=== PATIENT | female | born 1990 | race Caucasian/White ===

== ENCOUNTER 2017-04-26 18:52 | Emergency (ER) | payer MEDICAID ==
[2017-04-26] MEDS ORDERED: CEPHALEXIN 250 MG CAPSULE PO STA (20:27)
[2017-04-26] MEDS ORDERED: CEPHALEXIN 250 MG CAPSULE PO ONE (20:32)
--- NOTE | 2017-04-26 20:45 | ED Physician Documentation ---
PD HPI SKIN - Stated complaint Stated Complaint: LT ARM SWELLING - Chief complaint Chief Complaint: Wound - History obtained from History obtained from: Patient, Family - History of Present Illness Timing - onset: Yesterday Timing - details: Gradual onset, Still present Location: LUE Quality / character: Painful, Discolored Associated symptoms: No: Fever, Myalgias, Joint pain Similar symptoms before: Has not had sx before Recently seen: Not recently seen - Additional information Additional information: Patient is a 26 year old female with a history of a puritic skin rash who is presenting to the emergency department for skin rash and swelling. Patient has had the puritic component for a while and she has been scratching it. Patient developed a slightly raised red area that is tender to touch starting yesterday. Review of Systems Constitutional: denies: Fever, Chills Eyes: denies: Photophobia Throat: denies: Sore throat Respiratory: denies: Cough, Wheezing GI: denies: Nausea, Vomiting Skin: reports: Rash. denies: Abrasion (s), Laceration (s) Musculoskeletal: reports: Extremity pain, Extremity swelling. denies: Joint pain Neurologic: denies: Generalized weakness, Focal weakness, Numbness Psychiatric: denies: Depressed, Suicidal Immunocompromised: denies: Immunocompromised PD PAST MEDICAL HISTORY - Past Medical History Past Medical History: Yes Neuro: Headache/migraine - Past Surgical History Past Surgical History: No - Present Medications Home Medications: Ambulatory Orders Medication Instructions Recorded Confirmed Amitriptyline HCl 1 tab PO QPM 04/26/17 04/26/17 Cephalexin [Keflex] 500 mg PO Q6H #28 capsule 04/26/17 - Allergies Allergies/Adverse Reactions: Allergies Allergy/AdvReac Type Severity Reaction Status Date / Time naproxen sodium * Allergy Edema Verified 04/26/17 19:43 [From Benjamin] - Social History Does the pt smoke?: Yes Smoking Status: Current every day smoker Does the pt drink ETOH?: Yes Does the pt have substance abuse?: No - Immunizations Immunizations are current?: No Immunizations: TDAP >10years/unknown - POLST Patient has POLST: No PD ED PE NORMAL - Vitals Vital signs reviewed: Yes - General General: Alert and oriented X 3, No acute distress - HEENT HEENT: Atraumatic, PERRL - Neck Neck: Supple, no meningeal sign - Cardiac Cardiac: RRR, No murmur - Abdomen Abdomen: Soft, Non tender, Non distended - Neuro Neuro: Alert and oriented X 3, No motor deficit, No sensory deficit, Normal speech - Psych Psych: Normal mood, Normal affect PD ED PE EXPANDED - Derm Derm: Urticaria (with excoriation) - Extremities Extremities: Left forearm (2cm by 3cm area of warmth, tenderness and erythema on left forearm.) Results - Vitals Vitals: Vital Signs - 24 hr 04/26/17 04/26/17 19:04 21:07 Temperature 37 C 36.8 C Heart Rate 106 H 86 Respiratory 17 18 Rate Blood Pressure 131/60 H 119/76 O2 Saturation 98 98 Oxygen O2 Source Room air PD MEDICAL DECISION MAKING - ED course Complexity details: reviewed old records, reviewed results, considered differential, d/w patient, d/w family ED course: Patient was seen and examined at bedside. patient had developed a cellulitis likely secondary to excoriations. Patient was started on keflex. Patient had a follow up with a long wall mining machine tender in 5 days. Patient was given detailed discharge and return instructions. Patient required no further work up and patient was stable for dishcharge with outpatient follow up. Departure - Departure Disposition: 01 Home, Self Care Clinical Impression: Cellulitis Condition: Good Instructions: Cellulitis Dc Follow-Up: primary,care provider [Other] - Within 1 week Prescriptions: Cephalexin [Keflex] 500 mg PO Q6H #28 capsule Comments: Your symptoms today are being caused by an infection on your skin. You will need to outline your infection and make sure that it improves. You had your first dose of antibiotics today and you will need to take it 4 times a day for the next week. You should follow up with your long wall mining machine tender on sunday. You can take motrin or tylenol as needed for fevers or pain. You may return to the emergency department at any time for new, worsening or uncontrollable symptoms. Discharge Date/Time: 04/26/17 20:55
[2017-04-26 21:09] VITALS: BP 119/76
== END 2017-04-26 20:55 | disposition home or self-care (01) ==
LOC: ED 18:52
DX: L03.114 Cellulitis of left upper limb (principal); L03.113 Cellulitis of right upper limb; F17.200 Nicotine dependence, unspecified, uncomplicated
CPT/HCPCS: 99283; A9270

== ENCOUNTER 2017-07-13 21:40 | Emergency (ER) | payer MEDICAID ==
--- NOTE | 2017-07-13 22:23 | XRAY Preliminary Report ---
Exam: XR Ankle 3 View LT IMPRESSION: No bony abnormality. [facility] SITE ID: [id number]
--- NOTE | 2017-07-13 22:26 | XRAY Report ---
EXAM: LEFT ANKLE RADIOGRAPHY EXAM DATE: 07/13/2017 10:09 PM. CLINICAL HISTORY: Fell onto a ditch and injured left ankle. Painful and swollen. COMPARISON: None. TECHNIQUE: 3 views. FINDINGS: Bones: Normal. No fractures or bone lesions. Joints: Normal. No effusion. No subluxations. The ankle mortise is normally aligned. Soft Tissues: Lateral soft tissue swelling. IMPRESSION: No bony abnormality. [facility] Referring Provider Line: [phone] SITE ID: [id number]
[2017-07-13] MEDS ORDERED: HYDROcod/ACET 5/325 Prepack 6 PO STA (22:38)
--- NOTE | 2017-07-13 22:40 | ED Physician Documentation ---
PD HPI LOWER EXT INJURY - Stated complaint Stated Complaint: ANKLE INJURY - Chief complaint Chief Complaint: Trauma Ext - History obtained from History obtained from: Patient - History of Present Illness PD HPI LOW EXT INJURY LOCATION: Other (Inversion injury of her left ankle because she stepped in a ditch at home while doing yard work today and she can walk but with a significant limp and a lot of pain.) Review of Systems Constitutional: denies: Fever, Chills Nose: denies: Rhinorrhea / runny nose, Congestion Cardiac: denies: Chest pain / pressure, Palpitations Respiratory: denies: Dyspnea, Cough PD PAST MEDICAL HISTORY - Past Medical History Past Medical History: Yes Neuro: Headache/migraine - Past Surgical History Past Surgical History: No - Present Medications Home Medications: Ambulatory Orders Medication Instructions Recorded Confirmed Amitriptyline HCl 1 tab PO QPM 04/26/17 07/13/17 HYDROcod/ACETAM 5/325 [Townsend 5/325] 1 - 2 ea PO Q6H PRN #15 tablet 07/13/17 - Allergies Allergies/Adverse Reactions: Allergies Allergy/AdvReac Type Severity Reaction Status Date / Time naproxen sodium * Allergy Edema Verified 07/13/17 21:47 [From Benjamin] - Social History Does the pt smoke?: Yes Smoking Status: Current every day smoker Does the pt drink ETOH?: Yes Does the pt have substance abuse?: No - Immunizations Immunizations are current?: Yes Immunizations: TDAP >10years/unknown - POLST Patient has POLST: No PD ED PE NORMAL - Vitals Vital signs reviewed: Yes - General General: Alert and oriented X 3, No acute distress - Extremities Extremities: Other (Left ankle is tender and swollen the lateral malleolus without focal foot or proximal fibular tenderness, Achilles function is intact.) - Neuro Neuro: Alert and oriented X 3, Normal speech - Psych Psych: Normal mood, Normal affect Results - Vitals Vitals: Vital Signs - 24 hr 07/13/17 21:47 Temperature 36.3 C L Heart Rate 116 H Respiratory 18 Rate Blood Pressure 139/97 H O2 Saturation 100 Oxygen O2 Source Room air - Rads (name of study) 3 view left ankle Radiology: EMP read contemporaneously (Normal) Departure - Departure Disposition: 01 Home, Self Care Clinical Impression: Ankle injury Qualifiers: Encounter type: initial encounter Laterality: left Qualified Code(s): S99.912A - Unspecified injury of left ankle, initial encounter Condition: Good Record reviewed to determine appropriate education?: Yes Instructions: ED Sprain Ankle W X Ray Prescriptions: HYDROcod/ACETAM 5/325 [Townsend 5/325] 1 - 2 ea PO Q6H PRN #15 tablet PRN Reason: Pain Comments: Recheck with your physician in 1 week if not improving, return if worse. Your blood pressure was elevated today on check into the emergency department. This does not mean that you have hypertension, it is a common phenomenon to come to the emergency department and have elevated blood pressure. I recommend that she see her primary care physician within the week to have it rechecked when you are feeling better. Do not drink or drive while taking narcotic pain medication. Note that many narcotic pain relievers also contain Tylenol/acetaminophen. Please ensure that your total dose of acetaminophen from all sources does not exceed 3 g (3000 mg) per day. You may get constipated while on this medication. Take a stool softener such as Colace twice a day while you are on it. Also add an tdcv-vqk-kvtkkok laxative such as senna or MiraLAX on any day that you do not have a bowel movement. If you received a narcotic pain medication or sedative while in the emergency department, do not drive for the next 24 hours.
[2017-07-13] MEDS ORDERED: HYDROcod/ACET 5/325 Prepack 6 PO ONE (22:53)
[2017-07-13 23:07] VITALS: BP 119/77
== END 2017-07-13 23:05 | disposition home or self-care (01) ==
LOC: ED 21:40
DX: S99.912A Unspecified injury of left ankle, initial encounter (principal); X50.0XXA Overexertion from strenuous movement or load, initial encounter; Y93.H9 Activity, other involving exterior property and land maintenance, building and construction; Y92.017 Garden or yard in single-family (private) house as the place of occurrence of the external cause; F17.200 Nicotine dependence, unspecified, uncomplicated; R03.0 Elevated blood-pressure reading, without diagnosis of hypertension
CPT/HCPCS: 99283

== ENCOUNTER 2017-10-25 15:05 | Outpatient (CLI) | payer MEDICAID ==
[2017-10-26 16:17] LABS: TEST RESULT REPORT
[2017-10-31 15:02] LABS: TEST RESULT REPORT (())
== END 2017-10-25 15:06 | disposition home or self-care (01) ==
LOC: LAB.N 15:05
PROVIDERS: ATTEND Nurse Practitioner Gerontology
DX: L23.9 Allergic contact dermatitis, unspecified cause (principal)
CPT/HCPCS: 36415; 81599; 86003

== ENCOUNTER 2018-07-15 08:00 | Outpatient (CLI) | payer MEDICAID ==
[2018-07-15 12:12] LABS: BASOPHILS % (AUTO) 0.5 %; EOSINOPHILS # (AUTO) 0.3 10^3/uL (0.0-0.7); EOSINOPHILS % (AUTO) 4.8 %; HGB - HEMOGLOBIN 13.1 g/dL (12.0-16.0); LYMPHOCYTES # (AUTO) 1.5 10^3/uL (1.5-3.5); LYMPHOCYTES % (AUTO) 24.8 %; MEAN CORPUSCULAR HGB CONC 35.3 g/dL (32.0-36.0); MEAN CORPUSCULAR VOLUME 90.7 fL (81.0-99.0); MEAN PLATELET VOLUME 8.9 fL (7.9-10.8); MONOCYTES # (AUTO) 0.6 10^3/uL (0.0-1.0); MONOCYTES % (AUTO) 9.5 %; NEUTROPHILS # (AUTO) 3.7 10^3/uL (1.5-6.6); NEUTROPHILS % (AUTO) 60.4 %; PLT - PLATELET COUNT 251 10^3/uL (130-450); RED CELL DISTRIBUTION WIDTH 12.4 % (12.0-15.0); WHITE BLOOD COUNT 6.1 x10^3/uL (4.8-10.8)
[2018-07-15 12:23] LABS: ALBUMIN 4.2 g/dL (3.2-5.5); ALBUMIN/GLOBULIN RATIO 1.4 (1.0-2.2); ALKALINE PHOSPHATASE 49 IU/L (42-121); ALT ALANINE AMINOTRANSFERASE 27 IU/L (10-60); AST ASPARTATE AMINOTRANSFERASE 20 IU/L (10-42); BUN - BLOOD UREA NITROGEN 10 mg/dL (6-20); CALCIUM 8.8 mg/dL (8.5-10.3); CARBON DIOXIDE - CO2 24 mmol/L (21-32); CHLORIDE 104 mmol/L (101-111); CHOL/HDL RATIO 4.5 (<4.4); CHOLESTEROL 174 mg/dL; CREATININE 0.5 mg/dL (0.4-1.0); GFR - MDRD 148 (>89); GLUCOSE 102 mg/dL (70-100); HDL CHOLESTEROL 39 mg/dL; LDL CHOLESTEROL,CALCULATED 92 mg/dL; LDL/HDL RATIO 2.4 (<4.4); SODIUM 136 mmol/L (135-145); TOTAL PROTEIN 7.1 g/dL (6.7-8.2); VLDL CHOLESTEROL 43 mg/dL
== END 2018-07-15 08:01 | disposition home or self-care (01) ==
LOC: LAB.N 08:00
PROVIDERS: ATTEND Nurse Practitioner Gerontology
DX: Z79.899 Other long term (current) drug therapy (principal)
CPT/HCPCS: 36415; 80053; 80061; 83721; 84443; 85025

== ENCOUNTER 2019-02-18 07:56 | Emergency (ER) | payer MEDICAID ==
[2019-02-18 08:17] VITALS: BP 131/74
--- NOTE | 2019-02-18 08:33 | ED Physician Documentation ---
PD HPI LOWER EXT INJURY - Stated complaint Stated Complaint: R FOOT PX - Chief complaint Chief Complaint: Ext Problem - History obtained from History obtained from: Patient, Family - History of Present Illness PD HPI LOW EXT INJURY LOCATION: Right, Foot Type of injury: Twist Where injury occurred: Street Timing - onset: Last night Timing - duration: Hours Timing - details: Abrupt onset, Still present Improved by: Rest, Immobilization Worsened by: Moving, Palpating Associated symptoms: Swelling. No: Weakness, Tingling Contributing factors: No: Anticoagulated Similar symptoms before: Has not had sx before Recently seen: Not recently seen - Additional information Additional information: Previously well 28-year-old female was running with her dog last night when she developed sudden onset of pain in the sole of the right foot. She is not able to bear weight on this. She has pain with flexion extension of the foot and any weight that she does bear it is only on the outside edge. She has maximal tenderness in the center of the foot on the sole and extending to the heel. Review of Systems Constitutional: denies: Fever Ears: denies: Ear pain Nose: denies: Congestion Throat: denies: Sore throat Respiratory: denies: Cough GI: denies: Vomiting Musculoskeletal: reports: Extremity pain, Pain with weight bearing. denies: Neck pain, Back pain Neurologic: denies: Generalized weakness, Focal weakness, Numbness PD PAST MEDICAL HISTORY - Past Medical History Past Medical History: No - Past Surgical History Past Surgical History: No - Present Medications Home Medications: Ambulatory Orders Medication Instructions Recorded Confirmed Amitriptyline HCl 1 tab PO QPM 04/26/17 02/18/19 - Allergies Allergies/Adverse Reactions: Allergies Allergy/AdvReac Type Severity Reaction Status Date / Time naproxen sodium * Allergy Edema Verified 02/18/19 08:17 [From Benjamin] - Social History Does the pt smoke?: Yes Smoking Status: Current every day smoker Does the pt drink ETOH?: Yes Does the pt have substance abuse?: No - Immunizations Immunizations are current?: Yes Immunizations: TDAP >10years/unknown - POLST Patient has POLST: No PD ED PE NORMAL - Vitals Vital signs reviewed: Yes (tachy and hypertensive mild ) - General General: Alert and oriented X 3, No acute distress, Well developed/nourished - HEENT HEENT: Atraumatic, PERRL, EOMI - Respiratory Respiratory: No respiratory distress - Derm Derm: Normal color, Warm and dry, No rash - Extremities Extremities: No deformity, No edema, Other (There is tenderness to the plantar surface of the right foot especially toward the heel. There is mild percieved fullness. There is no crepitance. distal n/v is intact. No tenderness to the proximal 5th. ) - Neuro Neuro: Alert and oriented X 3, return agent airport 2-12 intact, No motor deficit, No sensory deficit, Normal speech Eye Opening: Spontaneous Motor: Obeys Commands Verbal: Oriented GCS Score: 15 - Psych Psych: Normal mood, Normal affect Results - Vitals Vitals: Vital Signs - 24 hr 02/18/19 08:15 Temperature 36.0 C L Heart Rate 109 H Respiratory 14 Rate Blood Pressure 131/74 H O2 Saturation 99 Oxygen O2 Source Room air - Rads (name of study) right foot Radiology: Prelim report reviewed (Impression: Normal foot radiography.), EMP read indepedently, See rad report PD MEDICAL DECISION MAKING - ED course Complexity details: considered differential, d/w patient, d/w family ED course: 28-year-old female with acute foot pain after running has sprained her foot and there is no evidence of fracture or bone spurs. She is placed into a walking boot and will follow up with orthopedics. Departure - Departure Disposition: 01 Home, Self Care Clinical Impression: Foot sprain Qualifiers: Encounter type: initial encounter Laterality: right Qualified Code(s): S93.601A - Unspecified sprain of right foot, initial encounter Condition: Stable Instructions: ED Sprain Foot Follow-Up: Heidi Denise ARNP [Primary Care Provider] - Forms: Activity restrictions
--- NOTE | 2019-02-18 09:05 | XRAY Report ---
Reason: plantar pain mid foot/heel Procedure Date: 02/18/2019 Accession Number: [id number] / [id number] Procedure: XR - Foot 3 View RT CPT Code: FULL RESULT: EXAM: RIGHT FOOT RADIOGRAPHY EXAM DATE: 02/18/2019 08:56 AM. CLINICAL HISTORY: Plantar pain, mid foot/heel. COMPARISON: None. TECHNIQUE: 3 views. FINDINGS: Bones: Normal. No fractures or bone lesions. Joints: Normal. No subluxations. Soft Tissues: Normal. No soft tissue swelling. IMPRESSION: Normal foot radiography. [facility]
== END 2019-02-18 09:30 | disposition home or self-care (01) ==
LOC: ED 07:56
DX: F17.200 Nicotine dependence, unspecified, uncomplicated (principal); S93.601A Unspecified sprain of right foot, initial encounter; Y93.K1 Activity, walking an animal; Y93.02 Activity, running; Y92.410 Unspecified street and highway as the place of occurrence of the external cause
CPT/HCPCS: 99282; 99283

== ENCOUNTER 2019-09-23 15:00 | Outpatient (CLI) | payer MEDICAID ==
--- NOTE | 2019-09-24 09:36 | Ultrasound Report ---
Reason: TEST POSITIVE Procedure Date: 09/23/2019 Accession Number: [id number] / [id number] Procedure: US - OB First Trimester CPT Code: Final Report FULL RESULT: EXAM: FIRST TRIMESTER OBSTETRIC ULTRASOUND (Less than 11 weeks) EXAM DATE: 09/23/2019 05:50 PM. CLINICAL HISTORY: test positive. LMP: Unknown. COMPARISONS: None. TECHNIQUE: Transabdominal and transvaginal ultrasound examination with static image documentation. CLINICAL DATES: EGA 10 weeks 5 days with KURT 04/15/2020 based on LMP of 07/10/2019. EGA 6 weeks 2 days with KURT 05/16/2020 based on current ultrasound. ASSESSMENT: Gestational Sac: Single intrauterine. Embryo: CRL (crown-rump length) 5 mm = 6 weeks 2 days with an KURT of 05/16/2020. Cardiac activity: None detected. Yolk sac: 6 mm. Amniotic fluid: Not accurately assessed at this gestational age. Early placenta: Not visible at this gestational age. Other: Small perigestational collection measures 0.8 x 3.8 cm. MATERNAL STRUCTURES: Uterus: Anteverted. Unremarkable. Cervix: No mass. Trace fluid in the cervical canal was noted. Right Ovary/Adnexa: The ovary measures 2.2 x 4 x 2 cm, volume 8.9 cc. 1.6 x 1.9 x 1.4 Cm complex right ovarian cyst with debris and mild peripheral flow. No mural nodules or thickened septations. Left Ovary/Adnexa: The ovary measures 2.7 x 2.6 x 2.2 cm, volume 8 cc. Unremarkable. Free Fluid: None. Other: None. IMPRESSION: 1. Single intrauterine of uncertain viability at EGA 6 weeks 2 days with KURT 05/16/2020 based on crown-rump length, which is discordant with clinical dates. Absent cardiac activity may be due to early gestation. Recommend continued clinical and laboratory monitoring. Repeat imaging as necessary. 2. Assigned dating is KURT 05/16/2020 based on based on current ultrasound. 3. Small perigestational hemorrhage as above. 4. Probable 1.9 cm right ovarian complex cyst most likely due to a corpus luteum. Otherwise, normal bilateral ovaries and adnexa. [facility]
== END 2019-09-23 15:01 | disposition home or self-care (01) ==
LOC: DI 15:00
PROVIDERS: ATTEND Nurse Practitioner Obstetrics & Gynecology
DX: Z32.01 Encounter for pregnancy test, result positive (principal)
CPT/HCPCS: 76801; 76817

== ENCOUNTER 2019-09-24 16:06 | Outpatient (CLI) | payer MEDICAID | END 2019-09-24 16:07 | disposition home or self-care (01) | LOC: LAB 16:06 | PROVIDERS: ATTEND Nurse Practitioner Obstetrics & Gynecology | DX: O36.80X0 Pregnancy with inconclusive fetal viability, not applicable or unspecified (principal); Z3A.00 Weeks of gestation of pregnancy not specified | CPT/HCPCS: 36415; 84702 ==

== ENCOUNTER 2019-09-26 15:22 | Outpatient (CLI) | payer MEDICAID | END 2019-09-26 15:23 | disposition home or self-care (01) | LOC: LAB 15:22 | PROVIDERS: ATTEND Nurse Practitioner Obstetrics & Gynecology | DX: O36.80X0 Pregnancy with inconclusive fetal viability, not applicable or unspecified (principal); Z3A.00 Weeks of gestation of pregnancy not specified | CPT/HCPCS: 36415; 84702 ==

== ENCOUNTER 2019-10-03 15:18 | Outpatient (CLI) | payer MEDICAID | END 2019-10-03 15:19 | disposition home or self-care (01) | LOC: LAB 15:18 | PROVIDERS: ATTEND Nurse Practitioner Obstetrics & Gynecology | DX: O36.80X0 Pregnancy with inconclusive fetal viability, not applicable or unspecified (principal); Z3A.00 Weeks of gestation of pregnancy not specified | CPT/HCPCS: 36415; 84702 ==

== ENCOUNTER 2019-10-10 16:22 | Outpatient (CLI) | payer MEDICAID | END 2019-10-10 16:23 | disposition home or self-care (01) | LOC: LAB 16:22 | PROVIDERS: ATTEND Nurse Practitioner Obstetrics & Gynecology | DX: O36.80X0 Pregnancy with inconclusive fetal viability, not applicable or unspecified (principal); Z3A.00 Weeks of gestation of pregnancy not specified | CPT/HCPCS: 36415; 84702 ==

== ENCOUNTER 2019-10-13 11:47 | Emergency (ER) | payer MEDICAID ==
--- NOTE | 2019-10-13 12:12 | ED Physician Documentation ---
History of Present Illness - Stated complaint Stated Complaint: 10 WKS PREG/BLEEDING - Chief complaint Chief Complaint: Abd Pain - Additonal information Additional information: G1, P0 29-year-old female who is at 10 weeks by ultrasound who presents with cramping and bleeding. Patient states that all she had an ultrasound done 3 weeks ago which showed A fetus that was smaller by size them by dates, and had no cardiac activity. She spoke with her OB provider Shannon and at that time they decided to watch with expectant management, she developed some vaginal bleeding and cramping yesterday and today the pain became more severe. She called her OB and OB told her to take 600 mg ibuprofen and that the pain was not better and a half an hour to seek care in the emergency department. Patient took 600 mg ibuprofen and she is still having some discomfort so she presents here. She does not know her blood type. No vomiting. No dysuria. Review of Systems Constitutional: denies: Fever GI: reports: Abdominal Pain. denies: Vomiting : denies: Dysuria PD PAST MEDICAL HISTORY - Past Surgical History Past Surgical History: No - Present Medications Home Medications: Ambulatory Orders Medication Instructions Recorded Confirmed Hydrocodone/Acetaminophen 1 - 2 each PO Q6H PRN #5 tablet 10/13/19 [Hydrocodon-Acetaminophen 5-325] Multivitamin [Multivitamins] 1 cap PO DAILY 10/13/19 10/13/19 - Allergies Allergies/Adverse Reactions: Allergies Allergy/AdvReac Type Severity Reaction Status Date / Time naproxen sodium * Allergy Edema Verified 10/13/19 11:55 [From Benjamin] - Social History Does the pt smoke?: Yes Smoking Status: Current every day smoker Does the pt drink ETOH?: Yes Does the pt have substance abuse?: No - Immunizations Immunizations are current?: Yes Immunizations: TDAP >10years/unknown - POLST Patient has POLST: No PD ED PE NORMAL - Vitals Vital signs reviewed: Yes - General General: Alert and oriented X 3, No acute distress - HEENT HEENT: PERRL - Neck Neck: Supple, no meningeal sign - Cardiac Cardiac: RRR, No murmur - Respiratory Respiratory: Clear bilaterally - Abdomen Abdomen: Soft, Non tender, Non distended - Female Female : Chief Quality Officer present, Other (Small amount of blood in the vaginal vault, no brisk or active bleeding, no products in the cervical os, which appears open) - Derm Derm: Warm and dry - Extremities Extremities: No deformity - Neuro Neuro: Alert and oriented X 3 - Psych Psych: Normal mood, Normal affect Results - Vitals Vitals: Oxygen O2 Source Room air - Labs Labs: Laboratory Tests 10/13/19 10/13/19 10/13/19 12:53 13:06 13:06 WBC 10.6 RBC 4.00 L Hgb 12.4 Hct 37.3 MCV 93.3 MCH 31.0 MCHC 33.2 RDW 11.9 L Plt Count 277 MPV 10.2 Neut # (Auto) 7.6 H Lymph # (Auto) 2.0 [place] # (Auto) 0.7 Eos # (Auto) 0.1 Baso # (Auto) 0.0 Absolute Nucleated RBC 0.00 Nucleated RBC % 0.0 Sodium 138 Potassium 3.1 L Chloride 102 Carbon Dioxide 25 Anion Gap 11.0 BUN 6 Creatinine 0.6 Estimated GFR (MDRD) 119 Glucose 94 Calcium 9.1 Total Bilirubin 0.7 AST 17 ALT 21 Alkaline Phosphatase 42 Total Protein 7.7 Albumin 4.7 Globulin 3.0 Albumin/Globulin Ratio 1.6 Lipase 28 Serum HCG, Qual HCG, Quant Urine Color LT RED Urine Clarity HAZY Urine pH 6.5 Ur Specific [employer] <=1.005 Urine Protein NEGATIVE Urine Glucose (UA) NEGATIVE Urine Ketones NEGATIVE Urine Occult Blood LARGE H Urine Nitrite NEGATIVE Urine Bilirubin NEGATIVE Urine Urobilinogen 0.2 (NORMAL) Ur Leukocyte Esterase SMALL H Urine RBC 0-5 Urine WBC 0-3 Ur Squamous Epith Cells MOD Squamous H Urine Bacteria None Seen Urine Culture Comments NOT INDICATED Blood Type 10/13/19 10/13/19 10/13/19 13:06 13:06 13:06 WBC RBC Hgb Hct MCV MCH MCHC RDW Plt Count MPV Neut # (Auto) Lymph # (Auto) [place] # (Auto) Eos # (Auto) Baso # (Auto) Absolute Nucleated RBC Nucleated RBC % Sodium Potassium Chloride Carbon Dioxide Anion Gap BUN Creatinine Estimated GFR (MDRD) Glucose Calcium Total Bilirubin AST ALT Alkaline Phosphatase Total Protein Albumin Globulin Albumin/Globulin Ratio Lipase Serum HCG, Qual POSITIVE HCG, Quant 8448.00 Urine Color Urine Clarity Urine pH Ur Specific [employer] Urine Protein Urine Glucose (UA) Urine Ketones Urine Occult Blood Urine Nitrite Urine Bilirubin Urine Urobilinogen Ur Leukocyte Esterase Urine RBC Urine WBC Ur Squamous Epith Cells Urine Bacteria Urine Culture Comments Blood Type B NEGATIVE - Rads (name of study) US OB Radiology: Other (No growth, no cardiac activity, ultrasound consistent with demise.) PD MEDICAL DECISION MAKING - ED course Complexity details: considered differential (Miscarriage, retained products of conception, anemia) ED course: On exam patient is nontoxic-appearing, she is a benign abdominal exam. Labs are notable for a blood type B-, she was given a dose of RhoGam for this. On speculum exam cervical loss is open but there are no products of conception in the office, and only a small amount of blood in the vaginal vault, no brisk bleeding. Her OB ultrasound is consistent with a miscarriage with products of conception remaining in the uterus. hCG is downtrending as expected. Urine shows no signs of infection. I spoke with Dr. Schmid of obstetrics, who evaluated the patient And after discussion of options administered mifepristone. Patient was also given misoprostol per Dr. Schmid's recommendations. She was also prescribed a small amount of Vicodin for pain with instructions on safe use. Expectant care and return precautions were discussed with the patient. Patient is comfortable with this plan. She will follow-up with her OB office closely. She was discharged home in the care of family Departure - Departure Disposition: 01 Home, Self Care Clinical Impression: Miscarriage Condition: Good Instructions: Miscarriage Dc Follow-Up: Katy Schmid MD [Provider Admit Priv/Credential] - Prescriptions: Hydrocodone/Acetaminophen [Hydrocodon-Acetaminophen 5-325] 1 - 2 each PO Q6H PRN #5 tablet PRN Reason: pain Comments: You were given misoprostol today to help pass the products that are still in your uterus. This can cause cramping and bleeding. If you are having severe bleeding, or other worrisome symptoms such as lightheadedness, Return to the emergency department. Follow-up with your OB in the next several days. You may take ibuprofen 600 mg every 6 hours as needed for pain, and Tylenol 650 mg every 6 hours as needed for pain. Do not drink alcohol or drive while taking narcotic pain medication. Note that many narcotic pain relievers also contain Tylenol/acetaminophen. Please ensure that your total dose of acetaminophen from all sources does not exceed 3 g (3000 mg) per day. You may get constipated while on this medication. Take a stool softener such as Colace twice a day while you are on it. Also add an oafs-jec-pdbjnzv laxative such as senna or MiraLAX on any day that you do not have a bowel movement. If you received a narcotic pain medication or sedative while in the emergency department, do not drive for the next 24 hours. Discharge Date/Time: 10/13/19 17:56
[2019-10-13] MEDS ORDERED: ACETAMINOPHEN 325 MG TABLET PO STA (12:39)
[2019-10-13 13:03] LABS: BILIRUBIN,URINE NEGATIVE (NEGATIVE); GLUCOSE, URINE (UA) NEGATIVE (NEGATIVE); KETONES,URINE (UA) NEGATIVE (NEGATIVE); LEUKOCYTE ESTERASE, URINE SMALL (NEGATIVE); NITRITE,URINE NEGATIVE (NEGATIVE); OCCULT BLOOD,URINE LARGE (NEGATIVE); PH,URINE 6.5 PH (5.0-7.5); PROTEIN,URINE NEGATIVE (NEGATIVE); UROBILINOGEN,URINE 0.2 (NORMAL) E.U./dL (NORMAL)
[2019-10-13 13:04] LABS: CLARITY,URINE HAZY (CLEAR)
[2019-10-13 13:11] LABS: BACTERIA,URINE None Seen /HPF (None Seen); RBC,URINE 0-5 /HPF (0-5); SQUAMOUS EPITHELIAL CELL,UR MOD Squamous (<= Few)
[2019-10-13 13:37] LABS: BASOPHILS % (AUTO) 0.4 %; EOSINOPHILS # (AUTO) 0.1 10^3/uL (0.0-0.7); HGB - HEMOGLOBIN 12.4 g/dL (12.0-16.0); LYMPHOCYTES % (AUTO) 19.2 %; MEAN CORPUSCULAR HGB CONC 33.2 g/dL (32.0-36.0); MEAN CORPUSCULAR VOLUME 93.3 fL (81.0-99.0); MEAN PLATELET VOLUME 10.2 fL (7.9-10.8); MONOCYTES # (AUTO) 0.7 10^3/uL (0.0-1.0); MONOCYTES % (AUTO) 6.7 %; NEUTROPHILS # (AUTO) 7.6 10^3/uL (1.5-6.6); NEUTROPHILS % (AUTO) 72.2 %; PLT - PLATELET COUNT 277 10^3/uL (130-450); RED CELL DISTRIBUTION WIDTH 11.9 % (12.0-15.0); WHITE BLOOD COUNT 10.6 x10^3/uL (4.8-10.8)
[2019-10-13 13:52] LABS: ALBUMIN 4.7 g/dL (3.2-5.5); ALBUMIN/GLOBULIN RATIO 1.6 (1.0-2.2); BILIRUBIN,TOTAL 0.7 mg/dL (0.2-1.0); CALCIUM 9.1 mg/dL (8.5-10.3); CREATININE 0.6 mg/dL (0.4-1.0); TOTAL PROTEIN 7.7 g/dL (6.7-8.2)
[2019-10-13 14:20] LABS: HCG,QUALITATIVE BLOOD POSITIVE
--- NOTE | 2019-10-13 15:34 | Ultrasound Report ---
Reason: Vaginal bleeding, preg Procedure Date: 10/13/2019 Accession Number: [id number] / [id number] Procedure: US - OB First Trimester CPT Code: Final Report FULL RESULT: EXAM: FIRST TRIMESTER OBSTETRIC ULTRASOUND (Less than 11 weeks) EXAM DATE: 10/13/2019 03:02 PM. CLINICAL HISTORY: Vaginal bleeding, . LMP: 07/10/2019. COMPARISONS: OB FIRST TRIMESTER 09/23/2019 3:17 PM. TECHNIQUE: Transabdominal and transvaginal ultrasound examination with static image documentation. CLINICAL DATES: EGA 13 weeks 4 days with UKRT 04/15/2020 based on LMP. EGA 9 weeks 1 day with KURT 05/16/2020 based on first ultrasound Current crown-rump length measurement of 4.8 mm would indicate gestational age of 6 weeks 1 day. . Technologist indicated that patient was previously advised that the fetus had stopped growing at 6 weeks and that the patient would miscarry. ASSESSMENT: Gestational Sac: Single intrauterine. Embryo: CRL (crown-rump length) 4.8 mm = 6 weeks 1 day. Cardiac activity: No cardiac activity identified. Yolk sac: Yolk sac not seen. Amniotic fluid: Not accurately assessed. Early placenta: Not visible. Other: 25.1 x 11.4 x 21.2 mm.. MATERNAL STRUCTURES: Uterus: Anteverted. Unremarkable. Cervix: Closed. Right Ovary/Adnexa: The ovary measures 2.9 x 2.3 x 2.5 cm, volume 9.1 cc. Unremarkable. Left Ovary/Adnexa: The ovary measures 3.5 x 1.9 x 1.8 cm, volume 6.7 cc. Unremarkable. Free Fluid: None. Other: None. IMPRESSION: 1. Findings consistent with demise, with no heart rate detectable and interval decrease in size of pole, as anticipated. [facility]
[2019-10-13] MEDS ORDERED: RHO(D) IMMUNE GLOBULIN 300 MCG SYRINGE IM STA (15:43)
--- NOTE | 2019-10-13 16:51 | PROVIDER PROGRESS NOTE ---
Objective - Vital Signs/Intake & Output Vital Signs: Vital Signs x48h Temp Pulse Resp BP Pulse Ox 10/13/19 16:22 69 18 114/67 100 10/13/19 11:51 97.9 F 98 18 133/85 H 96 - Lab Results Fish Bones: 10/13/19 13:06 10/13/19 13:06 Other Labs: Lab Results x24hrs 10/13/19 10/13/19 10/13/19 Range/Units 13:06 13:06 13:06 WBC (4.8-10.8) x10^3/uL RBC (4.20-5.40) 10^6/uL Hgb (12.0-16.0) g/dL Hct (37.0-47.0) % MCV (81.0-99.0) fL MCH (27.0-31.0) pg MCHC (32.0-36.0) g/dL RDW (12.0-15.0) % Plt Count (130-450) 10^3/uL MPV (7.9-10.8) fL Neut # (Auto) (1.5-6.6) 10^3/uL Lymph # (Auto) (1.5-3.5) 10^3/uL [place] # (Auto) (0.0-1.0) 10^3/uL Eos # (Auto) (0.0-0.7) 10^3/uL Baso # (Auto) (0.0-0.1) 10^3/uL Absolute Nucleated RBC x10^3/uL Nucleated RBC % /100WBC Sodium (135-145) mmol/L Potassium (3.5-5.0) mmol/L Chloride (101-111) mmol/L Carbon Dioxide (21-32) mmol/L Anion Gap (6-13) BUN (6-20) mg/dL Creatinine (0.4-1.0) mg/dL Estimated GFR (MDRD) (>89) Glucose (70-100) mg/dL Calcium (8.5-10.3) mg/dL Total Bilirubin (0.2-1.0) mg/dL AST (10-42) IU/L ALT (10-60) IU/L Alkaline Phosphatase (42-121) IU/L Total Protein (6.7-8.2) g/dL Albumin (3.2-5.5) g/dL Globulin (2.1-4.2) g/dL Albumin/Globulin Ratio (1.0-2.2) Lipase (22-51) U/L Serum HCG, Qual POSITIVE HCG, Quant 8448.00 mIU/mL Urine Color Urine Clarity (CLEAR) Urine pH (5.0-7.5) PH Ur Specific [place] (1.002-1.030) Urine Protein (NEGATIVE) mg/dL Urine Glucose (UA) (NEGATIVE) mg/dL Urine Ketones (NEGATIVE) mg/dL Urine Occult Blood (NEGATIVE) Urine Nitrite (NEGATIVE) Urine Bilirubin (NEGATIVE) Urine Urobilinogen (NORMAL) E.U./dL Ur Leukocyte Esterase (NEGATIVE) Urine RBC (0-5) /HPF Urine WBC (0-5) /HPF Ur Squamous Epith Cells (<= Few) Urine Bacteria (None Seen) /HPF Urine Culture Comments Blood Type B NEGATIVE 10/13/19 10/13/19 10/13/19 Range/Units 13:06 13:06 12:53 WBC 10.6 (4.8-10.8) x10^3/uL RBC 4.00 L (4.20-5.40) 10^6/uL Hgb 12.4 (12.0-16.0) g/dL Hct 37.3 (37.0-47.0) % MCV 93.3 (81.0-99.0) fL MCH 31.0 (27.0-31.0) pg MCHC 33.2 (32.0-36.0) g/dL RDW 11.9 L (12.0-15.0) % Plt Count 277 (130-450) 10^3/uL MPV 10.2 (7.9-10.8) fL Neut # (Auto) 7.6 H (1.5-6.6) 10^3/uL Lymph # (Auto) 2.0 (1.5-3.5) 10^3/uL [place] # (Auto) 0.7 (0.0-1.0) 10^3/uL Eos # (Auto) 0.1 (0.0-0.7) 10^3/uL Baso # (Auto) 0.0 (0.0-0.1) 10^3/uL Absolute Nucleated RBC 0.00 x10^3/uL Nucleated RBC % 0.0 /100WBC Sodium 138 (135-145) mmol/L Potassium 3.1 L (3.5-5.0) mmol/L Chloride 102 (101-111) mmol/L Carbon Dioxide 25 (21-32) mmol/L Anion Gap 11.0 (6-13) BUN 6 (6-20) mg/dL Creatinine 0.6 (0.4-1.0) mg/dL Estimated GFR (MDRD) 119 (>89) Glucose 94 (70-100) mg/dL Calcium 9.1 (8.5-10.3) mg/dL Total Bilirubin 0.7 (0.2-1.0) mg/dL AST 17 (10-42) IU/L ALT 21 (10-60) IU/L Alkaline Phosphatase 42 (42-121) IU/L Total Protein 7.7 (6.7-8.2) g/dL Albumin 4.7 (3.2-5.5) g/dL Globulin 3.0 (2.1-4.2) g/dL Albumin/Globulin Ratio 1.6 (1.0-2.2) Lipase 28 (22-51) U/L Serum HCG, Qual HCG, Quant mIU/mL Urine Color LT RED Urine Clarity HAZY (CLEAR) Urine pH 6.5 (5.0-7.5) PH Ur Specific [place] <=1.005 (1.002-1.030) Urine Protein NEGATIVE (NEGATIVE) mg/dL Urine Glucose (UA) NEGATIVE (NEGATIVE) mg/dL Urine Ketones NEGATIVE (NEGATIVE) mg/dL Urine Occult Blood LARGE H (NEGATIVE) Urine Nitrite NEGATIVE (NEGATIVE) Urine Bilirubin NEGATIVE (NEGATIVE) Urine Urobilinogen 0.2 (NORMAL) (NORMAL) E.U./dL Ur Leukocyte Esterase SMALL H (NEGATIVE) Urine RBC 0-5 (0-5) /HPF Urine WBC 0-3 (0-5) /HPF Ur Squamous Epith Cells MOD Squamous H (<= Few) Urine Bacteria None Seen (None Seen) /HPF Urine Culture Comments NOT INDICATED Blood Type Assessment/Plan - Problem List (1) Missed Impression: Rh neg, got rhogam in ER. US confirms MAB . Pt has chosen [facility] and would let us know when she wanted medical mgmt. With SAB cramping starting today, she would like to complete the SAB. Offered medical management which she accepts. Mifipristone 200mg given to patient while I observed her taking it. Will also give 800mcg of misoprostol. Bleeding precuaitons given. Sharmaine
[2019-10-13] MEDS ORDERED: miSOPROStoL 200 MCG TABLET PO STA ×2 (16:52→17:15)
[2019-10-13] MEDS ORDERED: miSOPROStoL 100 MCG TABLET VG ONE ×2 (16:52→17:10)
[2019-10-13 17:37] VITALS: BP 126/55
== END 2019-10-13 17:56 | disposition home or self-care (01) ==
LOC: ED 11:47
DX: O02.1 Missed abortion (principal); Z3A.10 10 weeks gestation of pregnancy; O99.331 Smoking (tobacco) complicating pregnancy, first trimester
CPT/HCPCS: 36415; 76801; 76817; 80053; 81001; 83690; 84702; 84703; 85025; 86900; 86901; 96372; 99284; A9270; 87086

== ENCOUNTER 2019-10-24 16:03 | Outpatient (CLI) | payer MEDICAID | END 2019-10-24 16:04 | disposition home or self-care (01) | LOC: LAB 16:03 | PROVIDERS: ATTEND Nurse Practitioner Obstetrics & Gynecology | DX: O02.1 Missed abortion (principal) | CPT/HCPCS: 36415; 84702 ==

== ENCOUNTER 2019-11-03 16:02 | Outpatient (CLI) | payer MEDICAID | END 2019-11-03 16:03 | disposition home or self-care (01) | LOC: LAB 16:02 | PROVIDERS: ATTEND Nurse Practitioner Obstetrics & Gynecology | DX: O02.1 Missed abortion (principal); Z3A.00 Weeks of gestation of pregnancy not specified | CPT/HCPCS: 36415; 84702 ==

== ENCOUNTER 2020-04-23 11:32 | Outpatient (CLI) | payer MEDICAID ==
--- NOTE | 2020-04-23 23:07 | Ultrasound Report ---
Reason: DYSMENORRHEA Procedure Date: 04/23/2020 Accession Number: [id number] / [id number] Procedure: US - Pelvic w/Transvaginal CPT Code: Final Report FULL RESULT: PROCEDURE: Pelvic w/Transvaginal INDICATIONS: DYSMENORRHEA TECHNIQUE: Real-time scanning was performed of the pelvic organs, with image documentation. Additional endovaginal scanning was necessary due to incomplete visualization of the adnexal and endometrial structures by transabdominal scanning. COMPARISON: None. FINDINGS: Transabdominal scanning: Limited scanning through the kidneys shows no hydronephrosis. Trace fluid in the pelvic cul-de-sac. Endovaginal scanning: Uterus: Uterus is anteverted and normal in size at 7.6 x 5 x 3.7 cm. The endometrium measures 8 mm in combined thickness. Small hypoechoic foci measuring approximately 6 mm in the anterior and posterior endometrium. Adjacent prominent vessel at the posterior aspect. Small nabothian cysts. Ovaries: Within normal limits. Small left ovarian hemorrhagic cyst measuring 1.3 x 1.2 x 1.1 cm. Right ovary measures 3 x 2.7 x 2 cm. Left ovary measures 4 x 2 x 1.8 cm. IMPRESSION: 1. Small hypoechoic foci within the endometrium with adjacent blood vessel. This could represent a small endometrial polyp. 2. Endometrial thickness is 8 mm and within normal limits. 3. Small left ovarian hemorrhagic cyst measuring 1.3 cm. Trace fluid in the pelvic cul-de-sac. Reviewed by: Deondre Cano MD on 04/23/2020 11:05 PM PDT Approved by: Deondre Cano MD on 04/23/2020 11:05 PM PDT Station ID: [id number]
== END 2020-04-23 11:33 | disposition home or self-care (01) ==
LOC: DI 11:32
PROVIDERS: ATTEND Family Medicine
DX: R93.89 Abnormal findings on diagnostic imaging of other specified body structures (principal); N83.202 Unspecified ovarian cyst, left side
CPT/HCPCS: 76830; 76856

== ENCOUNTER 2020-10-03 22:18 | Emergency (ER) | payer MEDICAID ==
--- NOTE | 2020-10-03 22:45 | ED Physician Documentation ---
PD HPI FEMALE - Stated complaint Stated Complaint: FEMALE - Chief complaint Chief Complaint: Abd Pain - History obtained from History obtained from: Patient - History of Present Illness Timing - onset: How many months ago (1) Timing - details: Intermittant Pain level max: 1 Associated symptoms: Abdominal pain. No: Fever Contributing factors: No: Recently seen: Not recently seen - Additional information Additional information: c/o one month of intermittent focal swelling LLQ and suprapubic region. she says she can see the swelling but only episodically, more pronounced when she stands up. she says she cant feel any lump or mass when palpating the area. she has had some mild tenderness of the area past 1-2 days. she called PMD but says she was unable to schedule an appointment Review of Systems Constitutional: reports: Reviewed and negative Cardiac: reports: Reviewed and negative Respiratory: reports: Reviewed and negative GI: reports: Abdominal Pain, Abdominal Swelling (focal). denies: Nausea, Vomiting, Constipation, Diarrhea : denies: Dysuria, Frequency, Now EGA Skin: denies: Rash PD PAST MEDICAL HISTORY - Past Medical History Cardiovascular: None Respiratory: None Neuro: Migraines Endocrine/Autoimmune: None GI: None : None Psych: None Musculoskeletal: None Derm: None - Past Surgical History Past Surgical History: No - Allergies Allergies/Adverse Reactions: Allergies Allergy/AdvReac Type Severity Reaction Status Date / Time naproxen sodium * Allergy Edema Verified 05/04/20 11:58 [From Benjamin] - Social History Does the pt smoke?: Yes Smoking Status: Current every day smoker Does the pt drink ETOH?: Yes ETOH Use: Beer Does the pt have substance abuse?: No - Immunizations Immunizations are current?: Yes Immunizations: TDAP >10years/unknown - POLST Patient has POLST: No PD ED PE NORMAL - Vitals Vital signs reviewed: Yes - General General: Alert and oriented X 3, Well developed/nourished - Cardiac Cardiac: RRR, No murmur - Respiratory Respiratory: No respiratory distress, Clear bilaterally - Abdomen Abdomen: Normal bowel sounds, Soft, Non distended, Other (mild, focal LLQ TTP without guarding or rebound. no visible swelling, no palpable mass or hernia) Results - Vitals Vitals: Vital Signs - 24 hr 10/03/20 10/04/20 10/04/20 22:24 00:27 02:00 Temperature 36.5 C 36.7 C 36.7 C Heart Rate 100 89 83 Respiratory 16 16 15 Rate Blood Pressure 122/75 115/75 99/54 L O2 Saturation 98 98 96 10/04/20 02:52 Temperature 36.8 C Heart Rate 91 Respiratory 16 Rate Blood Pressure 103/51 L O2 Saturation 98 Oxygen O2 Source Room air - Labs Labs: Laboratory Tests 10/04/20 10/04/20 10/04/20 00:16 00:16 00:16 WBC 7.9 RBC 4.15 L Hgb 13.5 Hct 39.5 MCV 95.2 MCH 32.5 H MCHC 34.2 RDW 11.9 L Plt Count 272 MPV 10.1 Neut # (Auto) 3.2 Lymph # (Auto) 3.5 [place] # (Auto) 0.7 Eos # (Auto) 0.4 Baso # (Auto) 0.1 Absolute Nucleated RBC 0.00 Nucleated RBC % 0.0 Sodium 141 Potassium 3.7 Chloride 106 Carbon Dioxide 26 Anion Gap 9.0 BUN 10 Creatinine 0.5 Estimated GFR (MDRD) 146 Glucose 100 Calcium 9.0 Urine Color YELLOW Urine Clarity CLEAR Urine pH 7.0 Ur Specific [place] 1.020 Urine Protein NEGATIVE Urine Glucose (UA) NEGATIVE Urine Ketones NEGATIVE Urine Occult Blood TRACE-INTA Urine Nitrite NEGATIVE Urine Bilirubin NEGATIVE Urine Urobilinogen 0.2 (NORMAL) Ur Leukocyte Esterase NEGATIVE Ur Microscopic Review NOT INDICATED Urine Culture Comments NOT INDICATED - Rads (name of study) CT A/P Radiology: Prelim report reviewed, See rad report PD MEDICAL DECISION MAKING - ED course Complexity details: reviewed results, re-evaluated patient, considered differential, d/w patient Departure - Departure Disposition: 01 Home, Self Care Clinical Impression: Abdominal pain Condition: Good Instructions: ED Abdominal Pain Unkn Cause Discharge Date/Time: 10/04/20 02:54
[2020-10-04 00:21] LABS: BILIRUBIN,URINE NEGATIVE (NEGATIVE); GLUCOSE, URINE (UA) NEGATIVE (NEGATIVE); KETONES,URINE (UA) NEGATIVE (NEGATIVE); LEUKOCYTE ESTERASE, URINE NEGATIVE (NEGATIVE); NITRITE,URINE NEGATIVE (NEGATIVE); OCCULT BLOOD,URINE TRACE-INTA (NEGATIVE); PROTEIN,URINE NEGATIVE (NEGATIVE); UROBILINOGEN,URINE 0.2 (NORMAL) E.U./dL (NORMAL)
[2020-10-04 00:24] LABS: CLARITY,URINE CLEAR (CLEAR)
[2020-10-04 00:28] LABS: BASOPHILS # (AUTO) 0.1 10^3/uL (0.0-0.1); BASOPHILS % (AUTO) 0.8 %; EOSINOPHILS # (AUTO) 0.4 10^3/uL (0.0-0.7); EOSINOPHILS % (AUTO) 4.6 %; HGB - HEMOGLOBIN 13.5 g/dL (12.0-16.0); LYMPHOCYTES # (AUTO) 3.5 10^3/uL (1.5-3.5); LYMPHOCYTES % (AUTO) 44.7 %; MEAN CORPUSCULAR HEMOGLOBIN 32.5 pg (27.0-31.0); MEAN CORPUSCULAR HGB CONC 34.2 g/dL (32.0-36.0); MEAN CORPUSCULAR VOLUME 95.2 fL (81.0-99.0); MEAN PLATELET VOLUME 10.1 fL (7.9-10.8); MONOCYTES # (AUTO) 0.7 10^3/uL (0.0-1.0); MONOCYTES % (AUTO) 8.5 %; NEUTROPHILS # (AUTO) 3.2 10^3/uL (1.5-6.6); NEUTROPHILS % (AUTO) 41.1 %; PLT - PLATELET COUNT 272 10^3/uL (130-450); RED BLOOD COUNT 4.15 10^6/uL (4.20-5.40); RED CELL DISTRIBUTION WIDTH 11.9 % (12.0-15.0); WHITE BLOOD COUNT 7.9 x10^3/uL (4.8-10.8)
[2020-10-04 00:37] LABS: CREATININE 0.5 mg/dL (0.4-1.0)
[2020-10-04] MEDS ORDERED: IOVERSOL 320 100 ML VIAL IVP ONE ×2 (00:45→01:11)
[2020-10-04 02:54] VITALS: BP 103/51
--- NOTE | 2020-10-04 08:40 | CT Report ---
PROCEDURE: Abdomen/Pelvis W INDICATIONS: LLQ pain CONTRAST: IV CONTRAST: Optiray 320 ml: 100 PO CONTRAST: *NO PO CONTRAST TECHNIQUE: After the administration of IV contrast, 5 mm thick sections acquired from the diaphragms to the symp hysis. 5 mm thick coronal and sagittal reformats were acquired. For radiation dose reduction, the f ollowing was used: automated exposure control, adjustment of mA and/or kV according to patient size. COMPARISON: Ultrasound pelvis 04/23/2020 FINDINGS: Image quality: Excellent. ABDOMEN: Lung bases: Lung bases are clear. Heart size is normal. Solid organs: Liver is enlarged with steatosis. The spleen is normal in size and enhancement. Gallb ladder is unremarkable Biliary system is non dilated. Pancreas enhances normally. No adrenal nodul es. Kidneys demonstrate normal size and enhancement, without hydronephrosis. Peritoneum and bowel: Bowel loops demonstrate normal wall thickness and caliber. No free fluid or a ir. Moderate stool is present without obstruction. Nodes and vessels: No retroperitoneal or mesenteric adenopathy by size criteria. Aorta and inferior vena cava are normal in size. Miscellaneous: No ventral hernias. No mass lesion, fluid collection or other abnormality is noted a t the area of palpable concern within the anterior left lower quadrant. PELVIS: Genitourinary: Bladder wall thickness is normal. Miscellaneous: No inguinal hernias or adenopathy. Bones: No suspicious bony lesions. No vertebral body compression fractures. IMPRESSION: 1. Moderate stool without obstruction. 2. There is no visualized acute changes within the abdomen or pelvis. The above findings are concordant with preliminary report. Reviewed by: Christel Grande MD on 10/04/2020 8:39 AM PST Approved by: Christel Grande MD on 10/04/2020 8:39 AM PST Station ID: [id number]
== END 2020-10-04 02:54 | disposition home or self-care (01) ==
LOC: ED 22:18
DX: R10.32 Left lower quadrant pain (principal); F17.200 Nicotine dependence, unspecified, uncomplicated
CPT/HCPCS: 36415; 74177; 80048; 81003; 85025; 99283; 99284; Q9967; 81001; 87086

== ENCOUNTER 2020-12-08 08:00 | Outpatient (CLI) | payer MEDICAID ==
[2020-12-08 19:36] LABS: ALBUMIN 4.6 g/dL (3.2-5.5); ALBUMIN/GLOBULIN RATIO 1.6 (1.0-2.2); BILIRUBIN,TOTAL 0.8 mg/dL (0.2-1.0); CALCIUM 9.3 mg/dL (8.5-10.3); CREATININE 0.6 mg/dL (0.4-1.0); TOTAL PROTEIN 7.4 g/dL (6.7-8.2)
== END 2020-12-08 23:59 | disposition home or self-care (01) ==
LOC: LAB.WCP 08:00
PROVIDERS: ATTEND Physician Assistant
DX: Z51.81 Encounter for therapeutic drug level monitoring (principal); Z79.899 Other long term (current) drug therapy
CPT/HCPCS: 36415; 80053

== ENCOUNTER 2021-05-25 08:50 | Emergency (ER) | payer MEDICAID ==
[2021-05-25 09:15] LABS: BILIRUBIN,URINE NEGATIVE (NEGATIVE); GLUCOSE, URINE (UA) NEGATIVE (NEGATIVE); KETONES,URINE (UA) NEGATIVE (NEGATIVE); LEUKOCYTE ESTERASE, URINE NEGATIVE (NEGATIVE); NITRITE,URINE NEGATIVE (NEGATIVE); OCCULT BLOOD,URINE MODERATE (NEGATIVE); PROTEIN,URINE NEGATIVE (NEGATIVE); UROBILINOGEN,URINE 0.2 (NORMAL) E.U./dL (NORMAL)
[2021-05-25 09:16] LABS: CLARITY,URINE CLEAR (CLEAR); HCG UR QUAL NEGATIVE
[2021-05-25 09:26] LABS: BACTERIA,URINE Rare /HPF (None Seen); RBC,URINE 0-5 /HPF (0-5); SQUAMOUS EPITHELIAL CELL,UR FEW Squamous (<= Few); WBC,URINE 0-3 /HPF (0-5)
[2021-05-25 09:27] LABS: MUCUS,URINE Marked Strands
[2021-05-25 09:31] LABS: BASOPHILS # (AUTO) 0.1 10^3/uL (0.0-0.1); BASOPHILS % (AUTO) 0.5 %; EOSINOPHILS # (AUTO) 0.2 10^3/uL (0.0-0.7); EOSINOPHILS % (AUTO) 1.4 %; HCT - HEMATOCRIT 39.2 % (37.0-47.0); HGB - HEMOGLOBIN 13.4 g/dL (12.0-16.0); LYMPHOCYTES # (AUTO) 1.2 10^3/uL (1.5-3.5); LYMPHOCYTES % (AUTO) 11.3 %; MEAN CORPUSCULAR HEMOGLOBIN 32.2 pg (27.0-31.0); MEAN CORPUSCULAR HGB CONC 34.2 g/dL (32.0-36.0); MEAN CORPUSCULAR VOLUME 94.2 fL (81.0-99.0); MEAN PLATELET VOLUME 9.8 fL (7.9-10.8); MONOCYTES # (AUTO) 0.7 10^3/uL (0.0-1.0); MONOCYTES % (AUTO) 6.3 %; NEUTROPHILS # (AUTO) 8.8 10^3/uL (1.5-6.6); NEUTROPHILS % (AUTO) 80.2 %; PLT - PLATELET COUNT 288 10^3/uL (130-450); RED BLOOD COUNT 4.16 10^6/uL (4.20-5.40); RED CELL DISTRIBUTION WIDTH 11.9 % (12.0-15.0)
[2021-05-25 09:45] LABS: ALBUMIN 4.4 g/dL (3.2-5.5); ALBUMIN/GLOBULIN RATIO 1.4 (1.0-2.2); BILIRUBIN,TOTAL 0.6 mg/dL (0.2-1.0); CALCIUM 8.9 mg/dL (8.5-10.3); CREATININE 0.7 mg/dL (0.4-1.0); POTASSIUM 3.8 mmol/L (3.5-5.0); TOTAL PROTEIN 7.6 g/dL (6.7-8.2)
--- NOTE | 2021-05-25 10:06 | ED Physician Documentation ---
PD HPI FEMALE - Stated complaint Stated Complaint: FEMALE - Chief complaint Chief Complaint: Abd Pain - History obtained from History obtained from: Patient - History of Present Illness Timing - onset: Today Timing - duration: Hours Timing - details: Abrupt onset, Still present Associated symptoms: Abdominal pain. 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 She has had worse cramping than she has experienced previously. She is currently not having symptoms. She had some nausea and vomiting associated with the severity of the pain. She felt that she needed to go to the bathroom and was able to have a BM without problem. She notes that over the past 4 months she has had an irregularity to her menses she is having more bleeding than normal and more cramping than normal. Review of Systems Constitutional: denies: Fever Eyes: denies: Decreased vision Ears: denies: Ear pain Nose: denies: Congestion Throat: denies: Sore throat Cardiac: denies: Chest pain / pressure Respiratory: denies: Dyspnea, Cough GI: reports: Abdominal Pain, Nausea, Vomiting. 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), Other : None HEENT: None Psych: None Musculoskeletal: None Derm: None - Past Surgical History Past Surgical History: No - Present Medications Home Medications: Ambulatory Orders Medication Instructions Recorded Confirmed Topiramate [Topamax] 50 mg PO BID 05/25/21 05/25/21 - Allergies Allergies/Adverse Reactions: Allergies Allergy/AdvReac Type Severity Reaction Status Date / Time naproxen sodium * Allergy Edema Verified 05/25/21 08:57 [From Benjamin] - Social History Does the pt smoke?: Yes Smoking Status: Current every day smoker Does the pt drink ETOH?: Yes ETOH Use: Beer Does the pt have substance abuse?: No - Immunizations Immunizations are current?: Yes Immunizations: TDAP >10years/unknown - POLST Patient has POLST: No PD ED PE NORMAL - Vitals Vital signs reviewed: Yes (Hypertensive) - General General: Alert and oriented X 3, No acute distress, Well developed/nourished - HEENT HEENT: Atraumatic, PERRL, EOMI - Neck Neck: Supple, no meningeal sign, No bony TTP - Cardiac Cardiac: RRR, No murmur - Respiratory Respiratory: No respiratory distress, Clear bilaterally - Abdomen Abdomen: Normal bowel sounds, Soft, Non distended, No organomegaly, Other (minimal RLQ tenderness to palpation ) - Back Back: No CVA TTP, No spinal TTP - Derm Derm: Normal color - Extremities Extremities: No deformity, No edema - Neuro Neuro: Alert and oriented X 3, 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, No motor deficit, No sensory deficit, Normal speech Eye Opening: Spontaneous Motor: Obeys Commands Verbal: Oriented GCS Score: 15 - Psych Psych: Normal mood, Normal affect Results - Vitals Vitals: Vital Signs - 24 hr 05/25/21 05/25/21 08:57 10:30 Temperature 36.6 C 36.1 C L Heart Rate 89 78 Respiratory 18 18 Rate Blood Pressure 118/81 H 100/87 H O2 Saturation 99 100 Oxygen O2 Source Room air - Labs Labs: Laboratory Tests 05/25/21 05/25/21 05/25/21 09:10 09:20 09:20 WBC 11.0 H RBC 4.16 L Hgb 13.4 Hct 39.2 MCV 94.2 MCH 32.2 H MCHC 34.2 RDW 11.9 L Plt Count 288 MPV 9.8 Neut # (Auto) 8.8 H Lymph # (Auto) 1.2 L [place] # (Auto) 0.7 Eos # (Auto) 0.2 Baso # (Auto) 0.1 Absolute Nucleated RBC 0.00 Nucleated RBC % 0.0 Sodium 140 Potassium 3.8 Chloride 108 Carbon Dioxide 23 Anion Gap 9.0 BUN 15 Creatinine 0.7 Estimated GFR (MDRD) 99 Glucose 115 H Calcium 8.9 Total Bilirubin 0.6 AST 16 ALT 25 Alkaline Phosphatase 52 Total Protein 7.6 Albumin 4.4 Globulin 3.2 Albumin/Globulin Ratio 1.4 Lipase 25 Urine Color YELLOW Urine Clarity CLEAR Urine pH 8.0 H Ur Specific [place] 1.020 Urine Protein NEGATIVE Urine Glucose (UA) NEGATIVE Urine Ketones NEGATIVE Urine Occult Blood MODERATE H Urine Nitrite NEGATIVE Urine Bilirubin NEGATIVE Urine Urobilinogen 0.2 (NORMAL) Ur Leukocyte Esterase NEGATIVE Urine RBC 0-5 Urine WBC 0-3 Ur Squamous Epith Cells FEW Squamous Urine Bacteria Rare Urine Mucus Marked Strands Ur Microscopic Review INDICATED Urine Culture Comments NOT INDICATED Urine HCG, Qual NEGATIVE - Rads (name of study) CT ab pel with Radiology: Prelim report reviewed (Impression: No acute abnormality. Normal appendix. No free fluid.), EMP read indepedently, See rad report PD MEDICAL DECISION MAKING - ED course Complexity details: reviewed results, re-evaluated patient, considered differential, d/w patient ED course: 30-year-old female with acute right lower quadrant abdominal pain and sharp cramping that is intermittent in nature has now resolved her pain. She has no finding on CT scan has a negative test, and a negative work-up otherwise. She has had one episode of pain while here in the emergency department not as severe as previously and not causing nausea and vomiting. We will treat her conservatively for pain without an obvious source. Pain is brief in nature and severe likely related to gas. Departure - Departure Disposition: 01 Home, Self Care Clinical Impression: Abdominal pain Qualifiers: Abdominal location: right lower quadrant Qualified Code(s): R10.31 - Right lower quadrant pain Condition: Stable Instructions: ED Abdominal Pain Unkn Cause Follow-Up: [facility] [Provider Group] [facility] [Provider Group]
[2021-05-25] MEDS ORDERED: IOVERSOL 320 100 ML VIAL IVP ONE ×2 (10:08→13:48)
--- NOTE | 2021-05-25 10:47 | CT Report ---
PROCEDURE: Abdomen/Pelvis W INDICATIONS: RLQ tenderness CONTRAST: IV CONTRAST: Optiray 320 ml: 100 PO CONTRAST: *NO PO CONTRAST TECHNIQUE: After the administration of intravenous contrast, 5 mm thick sections acquired from the diaphragms to the symphysis. 5 mm thick coronal and sagittal reformats were acquired. For radiation dose reducti on, the following was used: automated exposure control, adjustment of mA and/or kV according to burton ent size. COMPARISON: CT abdomen and pelvis 10/04/2020. FINDINGS: Image quality: Excellent. ABDOMEN: Lung bases: Lung bases are clear. Heart size is normal. Solid organs: Liver and spleen are normal in size and enhancement. Gallbladder is unremarkable. Bi liary system is non dilated. Pancreas enhances normally. No adrenal nodules. Kidneys demonstrate n ormal size and enhancement, without hydronephrosis. Peritoneum and bowel: Bowel loops demonstrate normal wall thickness and caliber. Normal appendix. N o free fluid or air. Nodes and vessels: No retroperitoneal or mesenteric adenopathy by size criteria. Aorta and inferior vena cava are normal in size. Miscellaneous: No ventral hernias. PELVIS: Genitourinary: Bladder wall thickness is normal. Anteverted uterus. No free fluid. Miscellaneous: No inguinal hernias or adenopathy. Bones: No suspicious bony lesions. No vertebral body compression fractures. IMPRESSION: No acute abnormality. Normal appendix. No free fluid. Reviewed by: Deondre Cano MD on 05/25/2021 10:46 AM PDT Approved by: Deondre Cano MD on 05/25/2021 10:46 AM PDT Station ID: [id number]
[2021-05-25 11:21] VITALS: BP 137/108
== END 2021-05-25 11:20 | disposition home or self-care (01) ==
LOC: ED 08:50
DX: R10.31 Right lower quadrant pain (principal); F17.200 Nicotine dependence, unspecified, uncomplicated
CPT/HCPCS: 36415; 74177; 80053; 81001; 81025; 83690; 85025; 99284; Q9967; 81003; 87086

== ENCOUNTER 2021-07-10 08:53 | Emergency (ER) | payer MEDICAID ==
[2021-07-10 09:59] LABS: BASOPHILS # (AUTO) 0.1 10^3/uL (0.0-0.1); BASOPHILS % (AUTO) 0.4 %; EOSINOPHILS # (AUTO) 0.2 10^3/uL (0.0-0.7); EOSINOPHILS % (AUTO) 1.2 %; HCT - HEMATOCRIT 42.4 % (37.0-47.0); HGB - HEMOGLOBIN 14.1 g/dL (12.0-16.0); LYMPHOCYTES # (AUTO) 0.9 10^3/uL (1.5-3.5); LYMPHOCYTES % (AUTO) 6.7 %; MEAN CORPUSCULAR HEMOGLOBIN 31.8 pg (27.0-31.0); MEAN CORPUSCULAR HGB CONC 33.3 g/dL (32.0-36.0); MEAN CORPUSCULAR VOLUME 95.7 fL (81.0-99.0); MEAN PLATELET VOLUME 9.7 fL (7.9-10.8); MONOCYTES # (AUTO) 0.7 10^3/uL (0.0-1.0); MONOCYTES % (AUTO) 5.1 %; NEUTROPHILS # (AUTO) 11.4 10^3/uL (1.5-6.6); NEUTROPHILS % (AUTO) 86.1 %; PLT - PLATELET COUNT 274 10^3/uL (130-450); RED BLOOD COUNT 4.43 10^6/uL (4.20-5.40); RED CELL DISTRIBUTION WIDTH 11.9 % (12.0-15.0); WHITE BLOOD COUNT 13.3 x10^3/uL (4.8-10.8)
[2021-07-10 10:07] LABS: BILIRUBIN,URINE NEGATIVE (NEGATIVE); GLUCOSE, URINE (UA) NEGATIVE (NEGATIVE); KETONES,URINE (UA) NEGATIVE (NEGATIVE); LEUKOCYTE ESTERASE, URINE NEGATIVE (NEGATIVE); NITRITE,URINE NEGATIVE (NEGATIVE); OCCULT BLOOD,URINE NEGATIVE (NEGATIVE); PH,URINE 8.5 PH (5.0-7.5); PROTEIN,URINE NEGATIVE (NEGATIVE); UROBILINOGEN,URINE 0.2 (NORMAL) E.U./dL (NORMAL)
[2021-07-10 10:08] LABS: CLARITY,URINE CLEAR (CLEAR)
[2021-07-10 10:18] LABS: ALBUMIN 4.8 g/dL (3.2-5.5); ALBUMIN/GLOBULIN RATIO 1.6 (1.0-2.2); BILIRUBIN,TOTAL 0.7 mg/dL (0.2-1.0); CALCIUM 9.7 mg/dL (8.5-10.3); CREATININE 0.6 mg/dL (0.4-1.0); POTASSIUM 3.9 mmol/L (3.5-5.0); TOTAL PROTEIN 7.8 g/dL (6.7-8.2)
[2021-07-10] MEDS ORDERED: MAG HYDROX/AL HYDROX/SIMETH 30 ML UDC PO STA (10:18)
[2021-07-10] MEDS ORDERED: LIDOCAINE VISCOUS 2% 15 ML UDC MM STA (10:18)
--- NOTE | 2021-07-10 10:20 | ED Physician Documentation ---
PD HPI ABD PAIN - Stated complaint Stated Complaint: CHEST/ABD PX - Chief complaint Chief Complaint: Abd Pain - History obtained from History obtained from: Patient, Family - History of Present Illness Timing - onset: How many days ago (2) Timing - duration: Days (2) Timing - details: Gradual onset, Still present Quality: Cramping, Sharp, Pain Location: RUQ, Epigastric Radiation: Chest Improved by: Position Worsened by: Moving, Position, Palpation Associated symptoms: Nausea, Vomiting Similar symptoms before: Has not had sx before Recently seen: Not recently seen - Additional information Additional information: 31-year-old female with a history of dysmenorrhea has developed epigastric abdominal pain starting 2 days ago. She has had some nausea and vomiting associated with this and she has had some migration of her pain to the right upper quadrant as well. She does not remember having this pain in her abdomen previously usually she has had problems with lower pelvic pain. 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), Other : None HEENT: None Psych: None Musculoskeletal: None Derm: None - Past Surgical History Past Surgical History: No - Present Medications Home Medications: Ambulatory Orders Medication Instructions Recorded Confirmed Topiramate [Topamax] 150 mg PO DAILY 05/25/21 07/10/21 HYDROcod/ACETAM 5/325 [[place] 5/325] 1 - 2 tablet PO Q6H PRN #14 tablet 07/10/21 Ondansetron Odt [Zofran] 4 mg TL Q6H PRN #10 tablet 07/10/21 - Allergies Allergies/Adverse Reactions: Allergies Allergy/AdvReac Type Severity Reaction Status Date / Time naproxen sodium * Allergy Edema Verified 05/25/21 08:57 [From Benjamin] - Social History Does the pt smoke?: Yes Smoking Status: Current every day smoker Does the pt drink ETOH?: Yes Does the pt have substance abuse?: No - Immunizations Immunizations are current?: Yes Immunizations: TDAP >10years/unknown - POLST Patient has POLST: No PD ED PE NORMAL - Vitals Vital signs reviewed: Yes (Hypertensive mild) - General General: Alert and oriented X 3, Well developed/nourished, Other (Signs of pain with public affairs director tone and flattened affect) - HEENT HEENT: Atraumatic, PERRL, EOMI - Neck Neck: Supple, no meningeal sign, No bony TTP - Cardiac Cardiac: RRR, No murmur - Respiratory Respiratory: No respiratory distress, Clear bilaterally - Abdomen Abdomen: Normal bowel sounds, Soft, Non distended, No organomegaly, Other (There is specific right upper quadrant tenderness to palpation without arrest of respiration. There is generalized tenderness to the abdomen on the right side and epigastric left side appears unaffected.) - Back Back: No CVA TTP, No spinal TTP - Derm Derm: Normal color, Warm and dry, No rash - Extremities Extremities: No deformity, No edema - Neuro Neuro: Alert and oriented X 3, corporate paralegal 2-12 intact, No motor deficit, No sensory deficit, Normal speech Eye Opening: Spontaneous Motor: Obeys Commands Verbal: Oriented GCS Score: 15 - Psych Psych: Normal mood, Normal affect Results - Vitals Vitals: Vital Signs - 24 hr 07/10/21 08:57 Temperature 98.7 C H Heart Rate 80 Respiratory 18 Rate Blood Pressure 116/84 H O2 Saturation 99 Oxygen O2 Source Room air - Labs Labs: Laboratory Tests 07/10/21 07/10/21 07/10/21 09:45 09:45 09:45 WBC 13.3 H RBC 4.43 Hgb 14.1 Hct 42.4 MCV 95.7 MCH 31.8 H MCHC 33.3 RDW 11.9 L Plt Count 274 MPV 9.7 Neut # (Auto) 11.4 H Lymph # (Auto) 0.9 L [place] # (Auto) 0.7 Eos # (Auto) 0.2 Baso # (Auto) 0.1 Absolute Nucleated RBC 0.00 Nucleated RBC % 0.0 Sodium 143 Potassium 3.9 Chloride 111 Carbon Dioxide 24 Anion Gap 8.0 BUN 16 Creatinine 0.6 Estimated GFR (MDRD) 117 Glucose 138 H Calcium 9.7 Total Bilirubin 0.7 AST 18 ALT 26 Alkaline Phosphatase 52 Total Protein 7.8 Albumin 4.8 Globulin 3.0 Albumin/Globulin Ratio 1.6 Lipase 29 Urine Color YELLOW Urine Clarity CLEAR Urine pH 8.5 H Ur Specific [place] 1.015 Urine Protein NEGATIVE Urine Glucose (UA) NEGATIVE Urine Ketones NEGATIVE Urine Occult Blood NEGATIVE Urine Nitrite NEGATIVE Urine Bilirubin NEGATIVE Urine Urobilinogen 0.2 (NORMAL) Ur Leukocyte Esterase NEGATIVE Ur Microscopic Review NOT INDICATED Urine Culture Comments NOT INDICATED - Rads (name of study) gb u/s Radiology: Prelim report reviewed (Impression: Gallbladder demonstrates a normal sonographic appearance. No biliary dilation is seen. Prominent liver size, with mild likely fatty infiltration.), EMP read indepedently, See rad report Procedures - Bedside sono Bedside sono by EMP: With use bedside ultrasound the right upper quadrant is imaged in the gallbladder appears distended there is no thickening to the gallbladder wall there is a question of some shadowing stones small. The gallbladder is sonographically tender and pain radiates from the gallbladder to the lower abdomen. PD MEDICAL DECISION MAKING - ED course Complexity details: reviewed results, re-evaluated patient, considered differential, d/w patient, d/w family ED course: 31-year-old female with epigastric pain and some right upper quadrant abdominal pain has some nausea and vomiting associated with this and she is administered a GI cocktail consisting of viscous lidocaine and Mylanta which provides no relief. She is administered IV morphine, zofran and saline and an ultrasound of the gallbladder is obtained. Departure - Departure Disposition: 01 Home, Self Care Clinical Impression: Gastroenteritis Condition: Stable Instructions: ED Gastroenteritis Viral Follow-Up: [facility] [Provider Group] Prescriptions: HYDROcod/ACETAM 5/325 [[place] 5/325] 1 - 2 tablet PO Q6H PRN #14 tablet PRN Reason: Pain Ondansetron Odt [Zofran] 4 mg TL Q6H PRN #10 tablet PRN Reason: Nausea / Vomiting
[2021-07-10] MEDS ORDERED: SODIUM CHLORIDE 0.9% 1,000 ML IV STA (10:42)
[2021-07-10] MEDS ORDERED: MORPHINE 2 MG/ML CARPUJECT IVP STA (10:42)
[2021-07-10] MEDS ORDERED: ONDANSETRON 4 MG/2 ML VIAL IVP STA (10:42)
--- NOTE | 2021-07-10 11:50 | Ultrasound Report ---
PROCEDURE: Abdomen Limited INDICATIONS: RUQ pain TECHNIQUE: Real-time focused scanning was performed of the abdomen, with image documentation. COMPARISON: Correlation is made with prior CT, 05/25/2021. FINDINGS: The liver demonstrates prominent size. No liver lesions are detected. Liver demonstrates minimally increased echogenicity No gallstones or sludge can be seen. The gallbladder wall does not appear thickened. There is no spec ific pericholecystic fluid. The sonographic Coto's sign is negative. No biliary ductal dilatation is seen. The common bile duct measures 3 mm. The visualized pancreas is within normal limits. The visualized right kidney is unremarkable. IMPRESSION: The gallbladder demonstrates a normal sonographic appearance. No biliary dilatation is s een. Prominent liver size, with mild likely fatty infiltration. Reviewed by: Luke Huerta MD on 07/10/2021 10:48 AM EFRAIN Approved by: Luke Huerta MD on 07/10/2021 10:48 AM EFRAIN Station ID: [id number]
[2021-07-10 12:18] VITALS: BP 117/67
== END 2021-07-10 12:33 | disposition home or self-care (01) ==
LOC: ED 08:53
DX: K52.9 Noninfective gastroenteritis and colitis, unspecified (principal); F17.200 Nicotine dependence, unspecified, uncomplicated
CPT/HCPCS: 36415; 76705; 80053; 81003; 83690; 85025; 96361; 96374; 96375; 99284; A9270; 81001; 87086

== ENCOUNTER 2021-09-15 14:23 | Outpatient (CLI) | payer MEDICAID ==
[2021-09-15 14:43] LABS: BASOPHILS # (AUTO) 0.1 10^3/uL (0.0-0.1); BASOPHILS % (AUTO) 0.6 %; EOSINOPHILS # (AUTO) 0.3 10^3/uL (0.0-0.7); EOSINOPHILS % (AUTO) 3.1 %; LYMPHOCYTES # (AUTO) 2.4 10^3/uL (1.5-3.5); LYMPHOCYTES % (AUTO) 26.4 %; MEAN CORPUSCULAR HEMOGLOBIN 31.6 pg (27.0-31.0); MEAN CORPUSCULAR HGB CONC 33.3 g/dL (32.0-36.0); MEAN CORPUSCULAR VOLUME 94.9 fL (81.0-99.0); MEAN PLATELET VOLUME 9.6 fL (7.9-10.8); MONOCYTES # (AUTO) 0.7 10^3/uL (0.0-1.0); MONOCYTES % (AUTO) 8.3 %; NEUTROPHILS # (AUTO) 5.5 10^3/uL (1.5-6.6); NEUTROPHILS % (AUTO) 61.3 %; PLT - PLATELET COUNT 259 10^3/uL (130-450); RED BLOOD COUNT 4.11 10^6/uL (4.20-5.40); RED CELL DISTRIBUTION WIDTH 11.9 % (12.0-15.0); WHITE BLOOD COUNT 8.9 x10^3/uL (4.8-10.8)
[2021-09-15 14:59] LABS: ALBUMIN 4.5 g/dL (3.2-5.5); ALBUMIN/GLOBULIN RATIO 1.6 (1.0-2.2); ALKALINE PHOSPHATASE 58 IU/L (42-121); ALT ALANINE AMINOTRANSFERASE 25 IU/L (10-60); AST ASPARTATE AMINOTRANSFERASE 19 IU/L (10-42); BILIRUBIN,TOTAL 0.9 mg/dL (0.2-1.0); BUN - BLOOD UREA NITROGEN 12 mg/dL (6-20); CALCIUM 9.3 mg/dL (8.5-10.3); CARBON DIOXIDE - CO2 23 mmol/L (21-32); CHLORIDE 108 mmol/L (101-111); CHOL/HDL RATIO 3.5 (<4.4); CHOLESTEROL 216 mg/dL; CREATININE 0.5 mg/dL (0.4-1.0); GFR - MDRD 145 (>89); GLUCOSE 89 mg/dL (70-100); HDL CHOLESTEROL 62 mg/dL; LDL CHOLESTEROL,CALCULATED 128 mg/dL; LDL/HDL RATIO 2.1 (<4.4); POTASSIUM 3.5 mmol/L (3.5-5.0); SODIUM 139 mmol/L (135-145); TOTAL PROTEIN 7.4 g/dL (6.7-8.2); TRIGLYCERIDES 130 mg/dL; VLDL CHOLESTEROL 26 mg/dL
[2021-09-15 15:10] LABS: THYROID STIMULATING HORMONE 2.12 uIU/mL (0.34-5.60)
== END 2021-09-15 14:24 | disposition home or self-care (01) ==
LOC: LAB 14:23
PROVIDERS: ATTEND Family Medicine
DX: R53.83 Other fatigue (principal); Z13.220 Encounter for screening for lipoid disorders
CPT/HCPCS: 36415; 80050; 80061; 83721

== ENCOUNTER 2023-10-18 13:28 | Emergency (ER) | payer MEDICAID ==
--- NOTE | 2023-10-18 14:05 | ED Physician Documentation ---
PD HPI UPPER EXT INJURY - Stated complaint Stated Complaint: RT ELBOW PX - Chief complaint Chief Complaint: Ext Problem - History obtained from History obtained from: Patient - History of Present Illness Location: Right - Additonal information Additional information: 2 to 3 weeks of pain over the right elbow focused laterally and worse with supination. There is no specific injury. 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), Other : None HEENT: None Psych: None Musculoskeletal: None Derm: None - Past Surgical History Past Surgical History: No - Present Medications Home Medications: Ambulatory Orders Medication Instructions Recorded Confirmed Propranolol [Inderal] 20 mg PO DAILY 10/18/23 10/18/23 - Allergies Allergies/Adverse Reactions: Allergies Allergy/AdvReac Type Severity Reaction Status Date / Time naproxen sodium * Allergy Edema Verified 10/18/23 13:37 [From Benjamin] - Social History Does the pt smoke?: Yes Smoking Status: Current every day smoker Does the pt drink ETOH?: Yes Does the pt have substance abuse?: No - Immunizations Immunizations are current?: Yes Immunizations: TDAP >10years/unknown - POLST Patient has POLST: No PD ED PE NORMAL - Vitals Vital signs reviewed: Yes - General General: Alert and oriented X 3, No acute distress - Back Back: No CVA TTP, No spinal TTP - Derm Derm: Normal color, Warm and dry - Extremities Extremities: Other (Focally tender over the lateral epicondyle of the right elbow but with full range of motion. No deformity or redness or warmth.) Results - Vitals Vitals: Vital Signs - 24 hr 10/18/23 13:29 Temperature 35.9 C L Heart Rate 102 H Respiratory 17 Rate Blood Pressure 139/90 H O2 Saturation 97 Oxygen O2 Source Room air - Rads (name of study) R elbow XR Relevant Findings:: Final report received, EMP independent interpretation of test PD Medical Decision Making - ED course ED course: Seeming most like lateral epicondylitis, but an x-ray was done because she was having some pain above the elbow joint as well. The x-ray was done and negative. Recommend counterforce bracing, anti-inflammatories. Departure - Departure Disposition: 01 Home, Self Care Clinical Impression: Lateral epicondylitis of elbow Qualifiers: Laterality: right Qualified Code(s): M77.11 - Lateral epicondylitis, right elbow Condition: Good Record reviewed to determine appropriate education?: Yes Instructions: ED Epicondylitis Lateral Elbow Comments: Go to the drugstore and buy a counterforce/tennis elbow brace such as: https://[email or web address]/[email or web address]/[email or web address] Use an anti-inflammatory such as ibuprofen for the pain if you are not allergic. Return for new or worsening symptoms. If not improving with the brace follow- up with your doctor in about a week for recheck and consideration for physical therapy referral. Forms: PCP List
--- NOTE | 2023-10-18 14:10 | XRAY Report ---
PROCEDURE: Elbow 3 View RT INDICATIONS: elbow pain TECHNIQUE: 3 views of the elbow were acquired. COMPARISON: None. FINDINGS: Bones: No fractures or dislocations. No suspicious bony lesions. Soft tissues: No effusion. No suspicious soft tissue calcifications or masses. IMPRESSION: No acute bony abnormality. If pain persists with conservative management, consider repeat radiographs in 10-14 days or cross-sectional imaging. Reviewed by: Willy Mcdermott MD on 10/18/2023 2:09 PM PST Approved by: Willy Mcdermott MD on 10/18/2023 2:09 PM PST Station ID: [id number]
[2023-10-18 14:38] VITALS: BP 135/92; O2SAT 100
== END 2023-10-18 14:27 | disposition home or self-care (01) ==
LOC: ED 13:28
DX: M77.11 Lateral epicondylitis, right elbow (principal); F17.200 Nicotine dependence, unspecified, uncomplicated
CPT/HCPCS: 99283

== ENCOUNTER 2023-11-10 08:17 | Outpatient (CLI) | payer MEDICAID ==
[2023-11-10 09:11] LABS: ALBUMIN 4.6 g/dL (3.2-5.5); ALBUMIN/GLOBULIN RATIO 1.7 (1.0-2.2); ALKALINE PHOSPHATASE 62 IU/L (42-121); ALT ALANINE AMINOTRANSFERASE 24 IU/L (10-60); AST ASPARTATE AMINOTRANSFERASE 12 IU/L (10-42); BASOPHILS % (AUTO) 0.1 %; BILIRUBIN,TOTAL 0.5 mg/dL (0.2-1.0); BUN - BLOOD UREA NITROGEN 18 mg/dL (6-20); CALCIUM 9.5 mg/dL (8.5-10.3); CARBON DIOXIDE - CO2 27 mmol/L (21-32); CHLORIDE 104 mmol/L (101-111); CHOL/HDL RATIO 5.4 (<4.4); CHOLESTEROL 210 mg/dL; CREATININE 0.6 mg/dL (0.6-1.3); CRP - C-REACTIVE PROTEIN < 0.5 mg/dL (<0.5); EOSINOPHILS # (AUTO) 0.2 10^3/uL (0.0-0.7); EOSINOPHILS % (AUTO) 2.3 %; GFR - MDRD 116 (>89); GLUCOSE 93 mg/dL (74-104); HCT - HEMATOCRIT 42.1 % (37.0-47.0); HDL CHOLESTEROL 39 mg/dL; HGB - HEMOGLOBIN 13.8 g/dL (12.0-16.0); LDL CHOLESTEROL,CALCULATED 137 mg/dL; LDL/HDL RATIO 3.5 (<4.4); LYMPHOCYTES # (AUTO) 1.8 10^3/uL (1.5-3.5); MEAN CORPUSCULAR HEMOGLOBIN 31.3 pg (27.0-31.0); MEAN CORPUSCULAR HGB CONC 32.8 g/dL (32.0-36.0); MEAN CORPUSCULAR VOLUME 95.5 fL (81.0-99.0); MEAN PLATELET VOLUME 10.3 fL (7.9-10.8); MONOCYTES # (AUTO) 0.8 10^3/uL (0.0-1.0); MONOCYTES % (AUTO) 7.6 %; NEUTROPHILS # (AUTO) 7.2 10^3/uL (1.5-6.6); NEUTROPHILS % (AUTO) 71.7 %; PLT - PLATELET COUNT 251 10^3/uL (130-450); POTASSIUM 4.5 mmol/L (3.5-4.5); RED BLOOD COUNT 4.41 10^6/uL (4.20-5.40); SODIUM 137 mmol/L (135-145); TOTAL PROTEIN 7.3 g/dL (6.4-8.9); TRIGLYCERIDES 170 mg/dL (48-352); URIC ACID 6.1 mg/dL (2.3-6.6); VLDL CHOLESTEROL 34 mg/dL
== END 2023-11-10 08:18 | disposition home or self-care (01) ==
LOC: LAB 08:17
PROVIDERS: ATTEND Nurse Practitioner
DX: R53.83 Other fatigue (principal); M77.01 Medial epicondylitis, right elbow; M77.11 Lateral epicondylitis, right elbow; Z13.220 Encounter for screening for lipoid disorders
CPT/HCPCS: 36415; 80053; 80061; 83721; 84550; 85025; 85651; 86140

== ENCOUNTER 2024-03-11 09:37 | Outpatient (CLI) | payer MEDICAID ==
--- NOTE | 2024-03-12 10:00 | Mammography Report ---
BILATERAL DIGITAL DIAGNOSTIC MAMMOGRAM 3D/2D: 03/11/2024 CLINICAL: Diffuse left breast pain. Baseline exam. No prior exams were available for comparison. There are scattered areas of fibroglandular density in both breasts (category b / 25%-50% glandular t issue). No significant masses, calcifications, or other findings are seen in either breast. IMPRESSION: NEGATIVE There is no mammographic evidence of malignancy. Exam findings were conveyed to the patient. Patient is advised to monitor for significant change. Cli nical follow-up as needed. Based on the Tyrer Cuzick model (a risk assessment model) the patient's lifetime risk is 15.2% and he r 10 year risk is 0.8%. According to the ACR, ACS, and NCCN guidelines, an annual breast MRI exam avis ng with mammogram is recommended if the patient's lifetime risk is 20% or greater. This exam was interpreted at Station ID: [id number]. NOTE: For mammograms, a report in lay terms will be sent to the patient. Approximately 15% of breast malignancies will not be visualized mammographically. In the management of a palpable breast mass, a negative mammogram must not discourage biopsy of a clinically suspicious lesion. Electronically Signed By: Deondre Cano M.D. slc/:03/11/2024 10:08:47 ACR BI-RADS Category 1: Negative 3341F PARENCHYMAL PATTERN: (A) - The breast(s) demonstrate(s) scattered fibroglandular densities. BI-RADS CATEGORY: (1) - 1 Unspecified - other recall n/a LATERALITY: (B)
== END 2024-03-11 09:38 | disposition home or self-care (01) ==
LOC: DI 09:37
PROVIDERS: ATTEND Family Medicine
DX: N64.4 Mastodynia (principal); R92.323 Mammographic fibroglandular density, bilateral breasts